=== PATIENT | female | born 1970 | race Caucasian/White ===

== ENCOUNTER 2016-12-05 05:57 | Day surgery (SDC) | payer BC ==
--- NOTE | ~2016-12-05 | EGD ---
EGD REPORT [facility] [address] [id number] NAME: SERA MILLER : 74 STATUS : REG [facility] PAT#: [id number] AGE: 46 ADM/REG DATE : 12/05/16 MR#: [id number] REPORT SERV DATE: 12/05/16 DICTATED BY: WARREN VALLADARES DATE: 12/05/16 REPORT STATUS : Draft [facility] DATE: 12/05/16 Endoscopy Center Patient Name: Sera Miller Date of : 1970 Attending MD: WARREN VALLADARES MD Procedure Date No Time: 12/05/2016 Procedure: Colonoscopy Indications: High risk colon cancer surveillance: Personal history of colonic polyps Referring MD: AGUSTIN REID Medicines: Monitored Anesthesia Care Complications: No immediate complications. Procedure: Pre-Anesthesia Assessment: - ASA Grade Assessment: III - A patient with severe systemic disease. After I obtained informed consent, the scope was passed under direct vision. Throughout the procedure, the patient's blood pressure, pulse, and oxygen saturations were monitored continuously. The CF [id number] was introduced through the anus and advanced to the cecum, identified by appendiceal orifice and ileocecal valve. The colonoscopy was performed without difficulty. The patient tolerated the procedure well. The quality of the bowel preparation was good. Findings: The digital rectal exam was normal. Pertinent negatives include no palpable rectal lesions. nodular mucosa seen in the cecum., Biopsies were taken with a cold forceps for histology. A sessile polyp was found in the ascending colon. The polyp was 5 mm in size. The polyp was removed with a cold biopsy forceps. Resection and retrieval were complete. Hemorrhoids were found during retroflexion and were mild. Impression: - One 5 mm polyp in the ascending colon. Resected and retrieved. - Hemorrhoids. Recommendation: - Patient has a contact number available for emergencies. The signs and symptoms of potential delayed complications were discussed with the patient. Return to normal activities tomorrow. Written discharge instructions were provided to the patient. - Regular diet. EGD REPORT [facility] [address] [place] [address] [place] [address] NAME: SERA MILLER : 74 STATUS : REG [facility] PAT#: [id number] AGE: 46 ADM/REG DATE : 12/05/16 MR#: [id number] REPORT SERV DATE: 12/05/16 DICTATED BY: WARREN VALLADARES DATE: 12/05/16 REPORT STATUS : Draft TRANSCRIBED BY: [employer] DATE: 12/05/16 - Continue present medications. - Repeat colonoscopy in 5 years for surveillance. - Return to GI clinic PRN. Procedure Code(s): --- Professional --- 01429, Colonoscopy, flexible, proximal to splenic flexure; with biopsy, single or multiple Diagnosis Code(s): --- Professional --- D12.2, Benign neoplasm of ascending colon K64.9, Unspecified hemorrhoids Z86.010, Personal history of colonic polyps CPT copyright 2013 [employer]. All rights reserved. The codes documented in this report are preliminary and upon broomcorn press feeder review may be revised to meet current compliance requirements. WARREN VALLADARES MD 12/05/2016 7:27 AM This report has been signed electronically. Number of Addenda: 0 Note Initiated On: 12/05/2016 7:03 AM Scope Withdrawal Time 0 hours 7 minutes 1 second [id number] [place] [address]
[~2016-12-05 05:57] MED LIST: ADVIL PO; ALEVE220 MG PO; AMIT100 PO; AMIT50 PO; AUG875 PO; BACDS PO; CELEXA20 PO; CLEOCIN300 MG PO; DIOVAN HC1 PO; FARXIGA5 PO; FLEX PO; FLORASTOR250 MG PO; HYZAAR 100/25 T1 TAB PO; MULTIVITAMI1 PO; NAP500 PO; NEUR100 PO; OCEAN NAS; OXYCOD PO; P10 PO; PCET PO; PERCOCET1 TA4 PO; PR25 PO; PRILOSEC40 MG PO; PROAIR HFA INH; QVAR80 MCG; QVAR80 MCG INH; SILVADENE1 % TOP; SINGULAIR1 PO; SYMBICORT 160/41 INH INH; T PO; TAGAMET 200 MG200 MG PO; TORATAB PO; VANCO1P IV; WAL-ZYR; WELLSR150 PO; ZANTAC150 MG PO; ZOCOR20 PO; ZOL50 PO; ZYRTEC ALLGY10 MG PO
== END 2016-12-05 23:59 | disposition home health service (06) ==
LOC: DMU 05:57
PROVIDERS: Internal Medicine Gastroenterology
PROC: 0DBK8ZX Excision of Ascending Colon, Via Natural or Artificial Opening Endoscopic, Diagnostic (ICD-10-PCS; 2016-12-05)
PROC: 0DBH8ZX Excision of Cecum, Via Natural or Artificial Opening Endoscopic, Diagnostic (ICD-10-PCS; principal; 2016-12-05 07:30)
DX: D12.2 Benign neoplasm of ascending colon (principal); K64.9 Unspecified hemorrhoids; E66.9 Obesity, unspecified; E11.9 Type 2 diabetes mellitus without complications; I10 Essential (primary) hypertension; E78.00 Pure hypercholesterolemia, unspecified; J45.909 Unspecified asthma, uncomplicated; G47.33 Obstructive sleep apnea (adult) (pediatric); Z99.81 Dependence on supplemental oxygen; F32.9 Major depressive disorder, single episode, unspecified; F41.9 Anxiety disorder, unspecified; E78.5 Hyperlipidemia, unspecified; G43.909 Migraine, unspecified, not intractable, without status migrainosus; K21.9 Gastro-esophageal reflux disease without esophagitis; Z87.442 Personal history of urinary calculi; Z98.51 Tubal ligation status; Z86.010 Personal history of colon polyps; Z88.8 Allergy status to other drugs, medicaments and biological substances; Z88.5 Allergy status to narcotic agent; Z98.890 Other specified postprocedural states
CPT/HCPCS: 82962; 84703; 88305